=== PATIENT | male | born 1985 | race Two or more races ===

== ENCOUNTER 2024-11-11 04:35 | Day surgery (SDC) | payer OTHER ==
[2024-11-07 12:12] VITALS: BMI 27.0
[2024-11-11] MEDS ORDERED: BUPIVACAINE HCL/PF 0.5% (5MG/ML) 10 ML VIAL ONE (07:20)
[2024-11-11] MEDS ORDERED: PROPOFOL 20 ML ONE ×2 (07:23→08:34)
[2024-11-11] MEDS ORDERED: ROCURONIUM BROMIDE 50 MG/5 ML SYRINGE ONE ×2 (07:37→08:34)
[2024-11-11] MEDS ORDERED: MIDAZOLAM HCL 2 MG/2 ML SINGLE DOSE VIAL ONE (07:37)
[2024-11-11] MEDS ORDERED: LIDOCAINE HCL/PF 2% SDV 5ML VIAL ONE (07:37)
[2024-11-11] MEDS ORDERED: oxyCODONE HCL 5 MG TABLET PO PRN ×2 (07:39)
[2024-11-11] MEDS ORDERED: ONDANSETRON 4 MG/2 ML VIAL IVPUSH PRN (07:39)
[2024-11-11] MEDS ORDERED: LACTATED RINGERS SOLUTION 1,000 ML IV SCH (07:45)
[2024-11-11] MEDS ORDERED: ceFAZolin SODIUM 1 GM VIAL ONE (08:13)
[2024-11-11] MEDS: ceFAZolin 2 GRAM PREMIX BAG IVPB ONE (08:20)
[2024-11-11] MEDS ORDERED: SUCCINYLCHOLINE CHLORIDE 200 MG/10 ML SYRINGE ONE (08:35)
[2024-11-11] MEDS: BUPIVACAINE HCL/PF 0.5% (5MG/ML) 10 ML VIAL IJ ONE ×2 (08:36)
[2024-11-11] MEDS: BUPIVACAINE HCL/PF 0.25% (2.5MG/ML) 10 ML VIAL IJ ONE ×2 (08:37)
[2024-11-11] MEDS ORDERED: BUPIVACAINE HCL/PF 0.25% (2.5MG/ML) 10 ML VIAL ONE (08:40)
[2024-11-11] MEDS ORDERED: ONDANSETRON *ODT* 4 MG TABLET ONE (09:23)
[2024-11-11] MEDS ORDERED: HYDROmorphone HCl 2 MG/ML VIAL ONE (10:06)
[2024-11-11] MEDS ORDERED: SUGAMMADEX SODIUM 200 MG/2 ML VIAL ONE (11:18)
[2024-11-11 12:24] VITALS: RESP 18
[2024-11-11 16:23] VITALS: TEMP 98.2
[2024-11-11 17:20] VITALS: BP 113/68; PULSE 71
== END 2024-11-11 17:22 | disposition home or self-care (01) ==
LOC: JASU-SURG 04:35
PROVIDERS: ATTEND Surgery
PROC: 0YU50JZ Supplement Right Inguinal Region with Synthetic Substitute, Open Approach (ICD-10-PCS; principal; 2024-11-11 08:00)
DX: K40.90 Unilateral inguinal hernia, without obstruction or gangrene, not specified as recurrent (principal)
CPT/HCPCS: 86850; 86900; 86901; 88304-TC; 94760; C1781; Q0162